=== PATIENT | female | born 1985 | race African-American/Black ===

== ENCOUNTER 2020-11-08 12:51 | Outpatient (CLI) | payer OTHER, SELFPAY ==
--- NOTE | ~2020-11-08 | MMUS_ITS ---
EXAMINATION: MM diagnostic radha BI w jamin, US breast BI limited HISTORY: Bilateral pain in the upper breasts. TECHNIQUE: Craniocaudal, mediolateral, and mediolateral oblique 3-D tomosynthesis images of the bredeborah ts were performed and synthetic 2-D images were generated. CAD analysis was submitted and interpreted . High resolution limited bilateral breast ultrasound was performed. COMPARISON: None, baseline BREAST PARENCHYMAL COMPOSITION: The breasts are extremely dense, which lowers the sensitivity of mamm ography. FINDINGS: MAMMOGRAPHIC FINDINGS: There is no evidence of suspicious mass, calcification, or architectural distortion to suggest camacho graham. No mammographic correlate is identified for the patient's pain in either breast. ULTRASOUND: There is no evidence of focal abnormal solid or cystic mass in the vicinity of the patient's breast p ain. IMPRESSION: 1. No specific mammographic or sonographic correlate is identified for the patient's breast pain. Fur ther evaluation at this time should be based on clinical assessment. Continued follow-up physical exa mination is recommended. 2. Recommend routine screening mammography beginning at age 40. BI-RADS Category 1: Negative Reviewed, dictated and finalized at location A. IMPRESSION: 1. No specific mammographic or sonographic correlate is identified for the shabnam ent's breast pain. Further evaluation at this time should be based on clinical assessment. Continued follow-up physical examination is recommended. 2. Recommend routine screening mammography beginning at age 40. BI-RADS Category 1: Negative
== END 2020-11-08 12:52 | disposition home or self-care (01) ==
LOC: ANHIMG 12:56
PROVIDERS: PCP Nurse Practitioner; Visit Provider Nurse Practitioner
DX: N64.4 Mastodynia (principal)
CPT/HCPCS: 76642; 77062; 77066; G0279